=== PATIENT | female | born 1990 | race Caucasian/White ===

== ENCOUNTER 2022-05-31 19:03 | Emergency (ER) | payer BC, OTHER ==
[~2022-05-31] VITALS: Ht 167.6 cm; Wt 61.2 kg
[2022-05-31 19:25] VITALS: BP 128/72
--- NOTE | 2022-05-31 19:25 | NUR ---
PT BIBSELF W/ C/O NAUSEA VOMITING X 4 HOURS S/P EXPOSED TO HEAT AT [facility] EVENT. PT IS AAOX4, IN NAD AT THIS TIME, ABLE TO MAKE NEEDS KNOWN. PT PLACED COMFORTABLY IN BED, VITALS CHECKED. PT STATES SHE'S BEEN SIPPING FLUIDS SINCE HER NAUSEA STARTED.
[2022-05-31] MEDS ORDERED: ONDANSETRON 4 MG TAB.RAPDIS ONE (19:43)
--- NOTE | 2022-05-31 19:45 | NUR ---
PT REQUESTED TO HAVE IVF. MADE AWARE. ORDER RECEIVED FOR IVF 1L.
[2022-05-31] MEDS ORDERED: ONDA4TAB5 PO (19:46)
[2022-05-31] MEDS ORDERED: ONDANSETRON 4 MG TAB.RAPDIS SL ONE (20:00)
[2022-05-31] MEDS ORDERED: IV NS 0.9% 1,000 ML BAG IV ONE (20:30)
--- NOTE | 2022-05-31 20:57 | NUR ---
IVF COMPLETED. PT TOLERATED WELL.
--- NOTE | 2022-05-31 20:58 | NUR ---
Patient discharged to home in stable condition. Written and verbal after care instructions given. Patient verbalizes understanding of instruction. IV removed. Catheter intact and site benign. Pressure and 4x4 applied to site. No bleeding noted.
== END 2022-05-31 21:09 | disposition home or self-care (01) ==
LOC: ER 19:08
DX: R11.10 Vomiting, unspecified (principal); J45.909 Unspecified asthma, uncomplicated
CPT/HCPCS: 99283; J7030; Q0162

== ENCOUNTER 2024-05-18 08:53 | Emergency (ER) | payer BC ==
[~2024-05-18] VITALS: Ht 167.6 cm; Wt 61.2 kg
[~2024-05-18 08:53] MED LIST: ONDA4TAB5 PO
[2024-05-18] MEDS: IV NS 0.9% 1,000 ML BAG IV ONE (09:39)
[2024-05-18 09:43] LABS: BASOPHILS % (AUTO) 0.7 % (0.0-2.0); EOSINOPHILS # (AUTO) 0.2 K/uL (0.0-0.7); EOSINOPHILS % (AUTO) 2.4 % (0.0-6.0); HEMATOCRIT 37 % (33-45); HEMOGLOBIN 12.9 g/dL (11.5-14.8); LYMPHOCYTES # (AUTO) 2.9 K/uL (0.8-4.8); LYMPHOCYTES % (AUTO) 42.2 % (20.0-44.0); MEAN CORPUSCULAR HEMOGLOBIN 33 PG (26.0-33.0); MEAN CORPUSCULAR HGB CONC 35 g/dl (31.0-36.0); MEAN CORPUSCULAR VOLUME 95 fL (82-100); MONOCYTES # (AUTO) 0.3 K/uL (0.1-1.30); MONOCYTES % (AUTO) 4.9 % (2.0-12.0); NEUTROPHILS # (AUTO) 3.4 K/uL (1.8-8.9); NEUTROPHILS % (AUTO) 49.8 % (43.0-81.0); PLATELET COUNT (AUTO) 175 K/uL (150-450); RED BLOOD CELL COUNT(AUTO) 3.85 MIL/uL (4.0-5.2); WHITE BLOOD COUNT (AUTO) 6.9 K/uL (4.3-11.0)
[2024-05-18 09:52] LABS: CALCIUM, SERUM 9.3 mg/dL (8.5-10.1); CREATININE 0.9 mg/dL (0.6-1.3); POTASSIUM 4.2 mmol/L (3.5-5.1)
[2024-05-18 09:55] LABS: APPEARANCE,URINE CLEAR (CLEAR); BILIRUBIN,URINE NEGATIVE (NEGATIVE); BLOOD, URINE NEGATIVE Ery/uL (NEGATIVE); COLOR,URINE YELLOW (YELLOW); KETONES,URINE NEGATIVE (NEGATIVE); LEUKOCYTE ESTERASE ,URINE NEGATIVE (NEGATIVE); NITRITE, URINE NEGATIVE (NEGATIVE); PROTEIN,URINE NEGATIVE (NEGATIVE); UGLUCOSE NEGATIVE (NEGATIVE); UROBILINOGEN,URINE 0.2 EU/dL (0.2)
[2024-05-18 09:56] LABS: PREGNANCY TEST URINE QUAL NEGATIVE (NEGATIVE)
[2024-05-18 09:57] LABS: ALBUMIN 3.7 g/dL (3.4-5.0); BILIRUBIN,DIRECT 0.1 mg/dL (0.0-0.2); BILIRUBIN,TOTAL 0.2 mg/dL (0.2-1.0)
[2024-05-18] MEDS ORDERED: IOHEXOL-300 100 ML VIAL IV ONE (10:11)
[2024-05-18] MEDS ORDERED: IV NS 0.9% 250 ML IV ONE (10:11)
[2024-05-18] MEDS ORDERED: CT SWABBABLE VALVE TRANS SET 1 EA INFUS.SET MC ONE (10:11)
[2024-05-18 11:51] VITALS: BP 115/72; TEMP 98.5; O2SAT 100
== END 2024-05-18 11:52 | disposition home or self-care (01) ==
LOC: ER 09:04
DX: R10.31 Right lower quadrant pain (principal); J45.909 Unspecified asthma, uncomplicated; Z88.0 Allergy status to penicillin; Z79.899 Other long term (current) drug therapy
CPT/HCPCS: 99285; 74177; 96360; 85025; 80048; 87086; 83690; 80076; 84703; 81003; 36415; J7030; J7050; Q9967